=== PATIENT | male | born 1955 | race Two or more races ===

== ENCOUNTER 2023-07-01 15:17 | Inpatient (IN) | payer MEDICARE ==
[~2023-07-01] VITALS: Ht 175.3 cm; Wt 84.8 kg
[2023-07-01] MEDS ORDERED: BUSP5TAB3 PO (23:20)
[2023-07-01] MEDS ORDERED: GABA-536 PO (23:29)
[2023-07-01] MEDS ORDERED: LORAZEPAM 1 MG TABLET PO PRN (23:30)
[2023-07-01] MEDS ORDERED: MAGNESIUM HYDROXIDE 30 ML UDC PO PRN (23:30)
[2023-07-01] MEDS ORDERED: MELA5TAB PO (23:30)
[2023-07-01] MEDS ORDERED: MAG HYDROX/AL HYDROX/SIMETH 30 ML UDC PO PRN (23:30)
[2023-07-01] MEDS ORDERED: VENL75CA62 PO (23:32)
[2023-07-01] MEDS ORDERED: QUET25TA PO (23:33)
[2023-07-02] MEDS: BLOOD SUGAR DIAGNOSTIC 1 EACH STRIP IN ONE (00:06)
[2023-07-02] MEDS: ZOLPIDEM TARTRATE 5 MG TABLET PO PRN ×2 (00:11→22:36)
[2023-07-02] MEDS: GABAPENTIN 400 MG CAPSULE PO SCH ×2 (00:12→09:37)
[2023-07-02 08:00] VITALS: BP 140/81; TEMP 98; O2SAT 100
[2023-07-02] MEDS ORDERED: QUET25TA PO (08:38)
[2023-07-02] MEDS ORDERED: MAGN400T52 PO (08:39)
[2023-07-02] MEDS ORDERED: GABAPENTIN 400 MG CAPSULE PO SCH (09:00)
[2023-07-02] MEDS: busPIRone 5 MG TABLET PO SCH (11:04)
[2023-07-02] MEDS: DIPHENOXYLATE HCL/ATROP SULF 1 UDTAB TABLET PO PRN (13:25)
[2023-07-02] MEDS: ACETAMINOPHEN 325 MG TABLET PO PRN (14:34)
[2023-07-02 16:00] VITALS: BP 129/97; TEMP 98.6; O2SAT 100
[2023-07-02] MEDS ORDERED: VENLAFAXINE XR 37.5 MG CAP.SR.24H ONE (21:45)
[2023-07-02] MEDS: VENLAFAXINE XR 37.5 MG CAP.SR.24H PO SCH (21:59)
[2023-07-02] MEDS ORDERED: VENLAFAXINE XR 75 MG CAP.SR.24H PO SCH (22:00)
[2023-07-02 22:20] VITALS: BP 133/83; TEMP 98.4; O2SAT 98
[2023-07-03 08:00] VITALS: BP 126/83; TEMP 98.1; O2SAT 98
== END 2023-07-03 11:59 | disposition left against medical advice (07) | DRG 885 ==
LOC: GPS 22:20
PROVIDERS: ADMIT Psychiatry & Neurology Psychiatry; ATTEND Nurse Practitioner Acute Care
DX: F31.9 Bipolar disorder, unspecified (principal); F41.1 Generalized anxiety disorder; F41.0 Panic disorder [episodic paroxysmal anxiety]; F42.9 Obsessive-compulsive disorder, unspecified; F90.9 Attention-deficit hyperactivity disorder, unspecified type; I25.10 Atherosclerotic heart disease of native coronary artery without angina pectoris; K76.0 Fatty (change of) liver, not elsewhere classified; E78.5 Hyperlipidemia, unspecified; Z79.899 Other long term (current) drug therapy; F29 Unspecified psychosis not due to a substance or known physiological condition; M54.30 Sciatica, unspecified side; Z91.51 Personal history of suicidal behavior; Z73.6 Limitation of activities due to disability
CPT/HCPCS: 82962-TC; 87081-TC